=== PATIENT | female | born 1995 | race Caucasian/White ===

== ENCOUNTER 2018-05-26 04:25 | Emergency (ER) | payer OTHER ==
--- NOTE | 2018-05-26 04:28 | EDPHY ---
H & P Time Seen by Provider: 05/26/18 04:27 HPI/ROS: HPI CHIEF COMPLAINT: Alcohol Intoxication HISTORY OF PRESENT ILLNESS: A 22-year-old female, highly intoxicated alcohol, presents emergency room by EMS with police escort as initially she was somewhat agitated with EMS. She states she had a large amount of alcohol tonight. They make contact with her as she passed out in the back of into her car. Over call 911. She presents emergency room by EMS in highly intoxicated with alcohol. She denies any drug use. Patient will not answer how much she drank tonight. Blood glucose noted to be 142 by EMS upon arrival. Past Medical History: Denies medical history Past Surgical History: denies surgical history Social History: Alcohol this evening. Family History: Noncontributory ROS REVIEW OF SYSTEMS: A comprehensive 10 point review of systems is otherwise negative aside from elements mentioned in the history of present illness. Exam Constitutional Intoxicated, triage nursing summary reviewed, vital signs reviewed, Sleepy, smells of alcohol Eyes normal conjunctivae and sclera, horizontal beating nystagmus consistent acute alcohol intoxication, otherwise pupils equal and react to light HENT normal inspection, atraumatic, moist mucus membranes, no epistaxis, neck supple/ no meningismus, no raccoon eyes. Respiratory clear to auscultation bilaterally, normal breath sounds, no respiratory distress, no wheezing. Cardiovascular rate normal, regular rhythm, no murmur, no edema, distal pulses normal. Gastrointestinal soft, non-tender, no rebound, no guarding, normal bowel sounds, no distension, no pulsatile mass. Genitourinary no CVA tenderness. Musculoskeletal no midline vertebral tenderness, full range of motion, no calf swelling, no tenderness of extremities, no meningismus, good pulses, neurovascularly intact. Skin pink, warm, & dry, no rash, skin atraumatic. Neurologic sleepy, intoxicated with alcohol,, alert and oriented x 3, AAOx3, moves all 4 extremities equally, motor intact, sensory intact, CN II-XII intact , , normal vision, normal speech. Psychiatric normal mood/affect. Heme/Lymph/Immune no lymphadenopathy. Differential Diagnosis: Includes but is not limited to in a particular order acute alcohol intoxication, alcohol abuse, dehydration, electrolyte abnormality , nausea vomiting from acute alcohol intoxication Medical Decision Making: Plan for this patient she is intoxicated with alcohol. We will watch closely for worsening condition. Monitor for sobriety. Once patient is sober she can be safely discharged from the emergency room. Re-evaluation: 0441: Patient ambulated well throughout the emergency room without any difficulty. Stable gait. She can appropriately be sent to the [facility]. Source: Patient, Police, EMS - Medical/Surgical History Hx Asthma: No Hx Chronic Respiratory Disease: No Hx Diabetes: No Hx Cardiac Disease: No Hx Renal Disease: No Hx Cirrhosis: No Hx Alcoholism: No Hx HIV/AIDS: No Hx Splenectomy or Spleen Trauma: No Other PMH: PMH: none. PSH: dental - Social History Smoking Status: Never smoked Constitutional: Initial Vital Signs Temperature (C) 36.8 C 05/26/18 04:27 Heart Rate 94 05/26/18 04:27 Respiratory Rate 16 05/26/18 04:27 Blood Pressure 136/97 H 05/26/18 04:27 O2 Sat (%) 95 05/26/18 04:27 O2 Delivery Mode Room Air Allergies/Adverse Reactions: No Known Allergies Allergy (Verified 05/26/18 04:29) Home Medications: Medication Instructions Recorded NK [No Known Home Meds] 10/20/15 Departure - Departure Disposition: Home, Routine, Self-Care Clinical Impression: Alcoholic intoxication Qualifiers: Complication of substance-induced condition: uncomplicated Qualified Code(s): F10.920 - Alcohol use, unspecified with intoxication, uncomplicated Condition: Good Instructions: Alcohol Intoxication (ED), Abuse of Alcohol (ED) Referrals: Patient,NotPresent [Unknown] - As per Instructions
[2018-05-26 04:30] VITALS: BP 136/97
== END 2018-05-26 05:14 | disposition home or self-care (01) ==
LOC: EDUNIT#
DX: F10.920 Alcohol use, unspecified with intoxication, uncomplicated (principal)

== ENCOUNTER 2019-03-18 00:36 | Emergency (ER) | payer OTHER ==
--- NOTE | 2019-03-18 00:49 | EDPHY ---
H & P Stated Complaint: ETOH, poss drugs, altered Time Seen by Provider: 03/18/19 00:49 HPI/ROS: HPI CHIEF COMPLAINT: Alcohol intoxication, possible drug intoxication HISTORY OF PRESENT ILLNESS: This patient is a 23-year-old female she arrives to the emergency room by EMS after EMS was called to a private residence where she was found to be intoxicated and possibly intoxicated with drugs. Patient is unable to give me a history. She presents to the emergency room and appears somnolent, intoxicated, smells of alcohol. Past Medical History: Unknown medical history Past Surgical History: Unknown surgical history Social History: Alcohol intoxication, student [employer]. Family History: Unknown ROS REVIEW OF SYSTEMS: Limited due to mental state. Exam Constitutional smells of alcohol, intoxicated, triage nursing summary reviewed , vital signs reviewed, awake/alert. Eyes normal conjunctivae and sclera, EOMI, PERRLA. HENT normal inspection, atraumatic, moist mucus membranes, no epistaxis, neck supple/ no meningismus, no raccoon eyes. Respiratory clear to auscultation bilaterally, normal breath sounds, no respiratory distress, no wheezing. Cardiovascular rate normal, regular rhythm, no murmur, no edema, distal pulses normal. Gastrointestinal soft, non-tender, no rebound, no guarding, normal bowel sounds, no distension, no pulsatile mass. Genitourinary no CVA tenderness. Musculoskeletal no midline vertebral tenderness, full range of motion, no calf swelling, no tenderness of extremities, no meningismus, good pulses, neurovascularly intact. Skin pink, warm, & dry, no rash, skin atraumatic. Neurologic awake, alert and oriented x 3, AAOx3, moves all 4 extremities equally, motor intact, sensory intact, CN II-XII intact, normal vision, slurring speech. 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 Re-evaluation: Serum 341 [id number]: Patient now ambulatory, up ambulatory multiple times the bathroom, she is clinically sober, stable gait, answers questions appropriately. Her serum alcohol last night was 341. Urine sample not provided. She is now ambulatory, answers questions appropriately and safe for discharge. She is on a [facility] hold. Source: Patient - Personal History LMP (Females 10-55): Irregular Current Tetanus Diphtheria and Acellular Pertussis (TDAP): Yes - Medical/Surgical History Hx Asthma: No Hx Chronic Respiratory Disease: No Hx Diabetes: No Hx Cardiac Disease: No Hx Renal Disease: No Hx Cirrhosis: No Hx Alcoholism: No Hx HIV/AIDS: No Hx Splenectomy or Spleen Trauma: No Other PMH: PMH: none. PSH: dental - Social History Smoking Status: Never smoked Constitutional: Initial Vital Signs Temperature (C) 36.3 C 03/18/19 00:42 Heart Rate 117 H 03/18/19 00:42 Respiratory Rate 19 03/18/19 00:42 Blood Pressure 148/110 H 03/18/19 00:42 O2 Sat (%) 97 03/18/19 00:42 O2 Delivery Mode Room Air Allergies/Adverse Reactions: No Known Allergies Allergy (Verified 03/18/19 00:40) Home Medications: Medication Instructions Recorded NK [No Known Home Meds] 10/20/15 Medical Decision Making - Data Points Laboratory Results: Laboratory Results 03/18/19 01:26 03/18/19 01:00 Medications Given: Discontinued Medications Sodium Chloride (Ns) 1,000 mls @ 0 mls/hr IV EDNOW ONE; Wide Open PRN Reason: Protocol Stop: 03/18/19 01:12 Last Admin: 03/18/19 01:24 Dose: 1,000 mls Sodium Chloride (Ns) 1,000 mls @ 0 mls/hr IV EDNOW ONE; Wide Open PRN Reason: Protocol Stop: 03/18/19 01:12 Last Admin: 03/18/19 01:18 Dose: 1,000 mls Lorazepam (Ativan) 1 mg PO EDNOW ONE Stop: 03/18/19 05:32 Last Admin: 03/18/19 05:33 Dose: 1 mg Departure - Departure Disposition: Home, Routine, Self-Care Clinical Impression: Alcoholic intoxication Qualifiers: Complication of substance-induced condition: uncomplicated Qualified Code(s): F10.920 - Alcohol use, unspecified with intoxication, uncomplicated Condition: Good Instructions: Alcohol Intoxication (ED), Abuse of Alcohol (ED) Referrals: NONE *PRIMARY CARE P,. [Primary Care Provider] - As per Instructions [facility] [Clinic] - As per Instructions
[2019-03-18] MEDS ORDERED: NS 1,000 ML IV ONE ×2 (01:11)
[2019-03-18 01:31] LABS: PLATELET COUNT 295 10^3/uL (150-400)
[2019-03-18 05:04] VITALS: BP 98/57
[2019-03-18] MEDS ORDERED: LORazepam 1 MG TAB PO ONE (05:31)
== END 2019-03-18 07:15 | disposition home or self-care (01) ==
LOC: EDUNIT#
DX: F10.920 Alcohol use, unspecified with intoxication, uncomplicated (principal); E86.9 Volume depletion, unspecified
CPT/HCPCS: G0480